=== PATIENT | male | born 1975 ===

== ENCOUNTER 2017-02-23 13:03 | Emergency (ER) | payer SELFPAY ==
[2017-02-23 13:38] VITALS: BP 154/73; PULSE 92; RESP 16; TEMP 98.7; O2SAT 98
--- NOTE | 2017-02-23 14:57 | ED PDOC ---
Upper Extremity Pain/Injury Time Seen by Provider: 02/23/17 14:00 Chief Complaint (Nursing): Abnormal Skin Integrity Chief Complaint (Provider): Laceration left anterior forearm History Per: Patient History/Exam Limitations: no limitations Onset/Duration Of Symptoms: Hrs Current Symptoms Are (Timing): Still Present Quality: "Pain" Severity: Moderate Additional History Per: Patient Additional Complaint(s): The patient is a 41yo male, presents to the ED for evaluation of laceration sustained on his left anterior forearm while working earlier today. Pt reports he was holding a knife and fell, resulting in the laceration. Currently, the wound is without active bleeding. Pt reports he has full range of motion in his left elbow as well as his left wrist. Pt states he has pain to the site but denies taking any medication for the pain. Pt states he is unsure if his tetanus is up to date. Past Medical History Reviewed: Historical Data, Nursing Documentation, Vital Signs Vital Signs: Last Vital Signs Temp 98.7 F 02/23/17 13:35 Pulse 92 H 02/23/17 13:35 Resp 16 02/23/17 13:35 BP 154/73 H 02/23/17 13:35 Pulse Ox 98 02/23/17 13:35 - Medical History PMH: No Chronic Diseases - Surgical History Surgical History: No Surg Hx - Family History Family History: States: No Known Family Hx - Living Arrangements Living Arrangements: Alone - Social History Current smoker - smoking cessation education provided: No Alcohol: None Drugs: Denies - Home Medications Home Medications: Ambulatory Orders Medication Instructions Recorded Cephalexin [cephalexin] 500 mg PO BID #20 cap 02/23/17 - Allergies Allergies/Adverse Reactions: Allergies Allergy/AdvReac Type Severity Reaction Status Date / Time No Known Allergies Allergy Verified 02/23/17 13:35 Review of Systems ROS Statement: Except As Marked, All Systems Reviewed And Found Negative Musculoskeletal: Positive for: Arm Pain (left forearm pain s/p sustaining a laceration) Neurological: Negative for: Weakness, Numbness Physical Exam - Reviewed Nursing Documentation Reviewed: Yes Vital Signs Reviewed: Yes - Physical Exam Appears: Positive for: Well, Non-toxic, No Acute Distress Head Exam: Positive for: ATRAUMATIC, NORMAL INSPECTION, NORMOCEPHALIC Skin: Positive for: Normal Color, Warm, DRY Eye Exam: Positive for: Normal appearance Neck: Positive for: Normal Cardiovascular/Chest: Positive for: Regular Rate, Rhythm Respiratory: Positive for: Normal Breath Sounds. Negative for: Respiratory Distress Pulses-Radial (L): 2+ Extremity: Positive for: Normal ROM, Capillary Refill (<2 seconds), Other (2.5 cm laceration on left anterior forearm, some muscle visible). Negative for: Deformity Neurologic/Psych: Positive for: Alert, Oriented - ECG O2 Sat by Pulse Oximetry: 98 (RA) Pulse Ox Interpretation: Normal - Radiology X-Ray: Interpreted by Me X-Ray Interpretation: No Acute Disease Medical Decision Making Medical Decision Making: Time: Impression: Laceration on left anterior forearm Plan: -- See procedure note for wound care -- TDAP booster -- Scribe Attestation: Documented by Deidre Mendoza acting as a scribe for ARTURO Delong Provider Attestation: All medical record entries made by the Scribe were at my direction and personally dictated by me. I have reviewed the chart and agree that the record accurately reflects my personal performance of the history, physical exam, medical decision making, and the department course for this patient. I have also personally directed, reviewed, and agree with the discharge instructions and disposition. Procedures - Time-Out Type of Procedure: Laceration repair Site of Procedure: Left anterior forearm Correct Patient: Yes Correct Procedure: Yes PA/Tech: Meena Stevenson - Laceration/Wound Repair Left anterior forearm Wound's Depth, Shape: irregular Betadine Prep?: Yes Anesthesia: Lidocaine w/ Epi Suture Size/Type: 4:0, proline Number of Sutures: 8 Layer Closure?: Yes Wound Complexity: Complex Sterile Dressing Applied?: Yes Progress: Pt tolerated progress well. Disposition - Clinical Impression Clinical Impression: Laceration - Patient ED Disposition Is Patient to be Admitted: No - Disposition Disposition: Routine/Home Disposition Time: 15:05 Condition: STABLE Additional Instructions: do not wet wound keep wound clean take your antibiotics please return in 10days for removal. Prescriptions: Cephalexin [cephalexin] 500 mg PO BID #20 cap Instructions: Laceration (ED), Wound Infection (ED) Forms: [facility] ED School/Work Excuse Print Language: LUXEMBOURGER
[2017-02-23] MEDS ORDERED: TDAP Vaccine 0.5 mL Syr IM ONE (15:08)
== END 2017-02-23 16:14 | disposition home or self-care (01) ==
LOC: H.ER 13:03
DX: S51.812A Laceration without foreign body of left forearm, initial encounter (principal); W26.0XXA Contact with knife, initial encounter; Y99.0 Civilian activity done for income or pay

== ENCOUNTER 2017-03-05 13:44 | Emergency (ER) | payer OTHER ==
[2017-03-05 13:51] VITALS: BP 139/86; PULSE 61; RESP 16; TEMP 98; O2SAT 100
--- NOTE | 2017-03-05 14:23 | ED PDOC ---
HPI: Wound Care - HPI Time Seen by Provider: 03/05/17 14:15 Chief Complaint (Nursing): Suture/Staple Removal Chief Complaint (Provider): Suture Removal History Per: Patient Exam Limitations: no limitations Onset/Duration Of Symptoms: Days Location Of Injury: Left: Arm Additional Complaint(s): Angel Zazueta is a 41 year old male that presents to the ED for a follow up visit for suture removal after presenting to ED on 02/23/17 with cut on his left arm. Patient was given tetanus booster and Keflex in ED during initial visit. He denies fever or any drainage form wound site. Past Medical History Reviewed: Historical Data, Nursing Documentation, Vital Signs Vital Signs: Last Vital Signs Temp 98 F 03/05/17 13:47 Pulse 61 03/05/17 13:47 Resp 16 03/05/17 13:47 BP 139/86 03/05/17 13:47 Pulse Ox 100 03/05/17 13:47 - Family History Family History: States: Unknown Family Hx - Home Medications Home Medications: Ambulatory Orders Medication Instructions Recorded Cephalexin [cephalexin] 500 mg PO BID #20 cap 02/23/17 - Allergies Allergies/Adverse Reactions: Allergies Allergy/AdvReac Type Severity Reaction Status Date / Time No Known Allergies Allergy Verified 03/05/17 13:46 Review of Systems Constitutional: Negative for: Fever Skin: Negative for: Other (denies drainage from wound site) Physical Exam - Reviewed Nursing Documentation Reviewed: Yes Vital Signs Reviewed: Yes - Physical Exam Appears: Positive for: Non-toxic, No Acute Distress Head Exam: Positive for: ATRAUMATIC, NORMOCEPHALIC Skin: Positive for: Normal Color, Warm Cardiovascular/Chest: Positive for: Regular Rate, Rhythm. Negative for: Murmur Respiratory: Positive for: Normal Breath Sounds. Negative for: Wheezing Extremity: Positive for: Normal ROM, Other (Sutures in place on left arm. No dehiscence of wound, no signs of infection (no cellulitis, no streaking, or abscess).). Negative for: Swelling Neurologic/Psych: Positive for: Alert, Oriented - ECG O2 Sat by Pulse Oximetry: 100 (RA) Pulse Ox Interpretation: Normal Medical Decision Making Medical Decision Making: Impression: Suture Removal Plan: * Removed sutures, patient tolerated suture removal well, no immediate complications. Steri-strips applied to wound site for continued healing. No further ED treatment needed at this time, patient stable for discharge home. Scribe Attestation: Documented by Mojgan Tan, acting as a scribe for Frances Stevenson PA-C. Provider Scribe Attestation: All medical record entries made by the Scribe were at my direction and personally dictated by me. I have reviewed the chart and agree that the record accurately reflects my personal performance of the history, physical exam, medical decision making, and the department course for this patient. I have also personally directed, reviewed, and agree with the discharge instructions and disposition. Disposition - Clinical Impression Clinical Impression: Removal of suture - Patient ED Disposition Is Patient to be Admitted: No - Disposition Disposition: Routine/Home Disposition Time: 14:15 Condition: STABLE Instructions: Stitches Removal (ED) Print Language: HONDURAN
== END 2017-03-05 14:20 | disposition home or self-care (01) ==
LOC: H.ER 13:44
DX: Z48.02 Encounter for removal of sutures (principal)